=== PATIENT | male | born 1975 | race Caucasian/White ===

== ENCOUNTER 2023-04-14 22:46 | Inpatient (IN) | payer OTHER ==
[~2023-04-14] VITALS: Ht 180.3 cm; Wt 102.0 kg
[2023-04-14] MEDS ORDERED: SODIUM CHLORIDE 0.9% 1,000 ML IV ONE (23:30)
[2023-04-14] MEDS ORDERED: LORazepam 2 MG/ML VIAL IVP ONE (23:30)
[2023-04-14 23:35] LABS: BASOPHILS % (AUTO) 0.9 % (0.0-2.0); EOSINOPHILS % (AUTO) 3.6 % (1.0-6.0); HEMATOCRIT 33.6 % (41-53); HEMOGLOBIN 10.9 g/dL (13.5-17.5); LYMPHOCYTES # (AUTO) 0.5 K/uL (1.0-4.8); LYMPHOCYTES % (AUTO) 20.3 % (22.0-44.0); MEAN CORPUSCULAR HEMOGLOBIN 25.9 pg (26.0-34.0); MEAN CORPUSCULAR HGB CONC 32.4 G/dL (31.0-37.0); MEAN CORPUSCULAR VOLUME 80 fL (80-100); MONOCYTES # (AUTO) 0.3 K/uL (0.1-1.0); MONOCYTES % (AUTO) 12.8 % (2.0-9.0); NEUTROPHILS # (AUTO) 1.6 K/uL (1.8-7.7); NEUTROPHILS % (AUTO) 62.4 % (40.0-70.0); RED BLOOD CELL COUNT(AUTO) 4.21 MIL/uL (4.50-5.90); RED CELL DISTRIBUTION WIDTH 18.8 % (11.5-14.5)
[2023-04-14 23:45] LABS: ANION GAP 10 mmol/L (8-16); CALCIUM, TOTAL 8.5 mg/dL (8.8-10.5); CARBON DIOXIDE 26 mmol/L (22-29); CHLORIDE 107 mmol/L (98-107); CREATININE 0.63 mg/dL (0.60-1.30); GLOMERULAR FILTR. RATE CALC > 60 mL/min (>60); GLUCOSE,RANDOM 102 mg/dL (70-110); POTASSIUM 3.6 mmol/L (3.5-5.1); SODIUM SERUM 143 mmol/L (136-145)
[2023-04-14 23:49] LABS: INR 1.5 (0.9-1.1)
[2023-04-14 23:59] LABS: PLATELET COUNT (AUTO) 73 K/uL (150-450)
[2023-04-15 00:03] LABS: B-TYPE NATRIURETIC PEPTIDE 52 pg/mL (0-100)
[2023-04-15 00:11] LABS: ALANINE AMINOTRANSFERASE 29 U/L (12-78); ALBUMIN 3.1 g/dL (3.4-5.0); ALKALINE PHOSPHATASE 75 U/L (46-116); ASPARTATE AMINOTRANSFERASE 61 U/L (15-37); BILIRUBIN,TOTAL 2.1 mg/dL (0.1-1.0); CREATINE KINASE, TOTAL ONLY 81 U/L (39-308); TOTAL PROTEIN, SERUM 7.7 g/dL (6.4-8.2)
[2023-04-15 02:59] LABS: APPEARANCE,URINE CLEAR (CLEAR); BILIRUBIN,URINE NEGATIVE (NEGATIVE); GLUCOSE, URINE (UA) NEGATIVE (NEGATIVE); KETONES,URINE NEGATIVE (NEGATIVE); LEUKOCYTE ESTERASE ,URINE NEGATIVE (NEGATIVE); NITRATE,URINE NEGATIVE (NEGATIVE); OCCULT BLOOD,URINE NEGATIVE (NEGATIVE); PROTEIN,URINE 30-70 mg/dL (NEGATIVE); SPECIFIC GRAVITIY, URINE 1.024 (1.003-1.030)
[2023-04-15 03:12] VITALS: BP 129/74
[2023-04-15 08:10] VITALS: BP 112/68
[2023-04-15] MEDS ORDERED: LORazepam 2 MG/ML VIAL IVP PRN (11:00)
[2023-04-15] MEDS ORDERED: ACETAMINOPHEN 325 MG TABLET PO PRN (11:15)
[2023-04-15] MEDS ORDERED: MAGNESIUM HYDROXIDE SUSPENSION 30 ML UDCUP PO PRN (11:15)
[2023-04-15] MEDS ORDERED: ZOLPIDEM TARTRATE 5 MG TABLET PO PRN (11:15)
[2023-04-15] MEDS ORDERED: BISACODYL 10 MG RECTAL RECTAL SUPPOSITORY PR PRN (11:15)
[2023-04-15] MEDS ORDERED: ONDANSETRON HCL 4 MG/2 ML VIAL IVP PRN (11:15)
[2023-04-15] MEDS: 1: MAGNESIUM SULFATE 2 GM, MVI, ADULT NO.1 WITH VIT K 10 ML, THIAMINE 100 MG, FOLIC ACID IV SCH ×5 (12:41)
[2023-04-15] MEDS: HEPARIN SODIUM,PORCINE 5,000 UNITS/ML VIAL SQ SCH (15:23)
[2023-04-15 15:36] VITALS: BP 102/57
[2023-04-15 15:57] LABS: AMPHET/METH SCREEN,URINE NEGATIVE (NEGATIVE); BARBITURATE SCREEN, URINE NEGATIVE (NEGATIVE); BENZODIAZEPINES SCREEN,URINE NEGATIVE (NEGATIVE); CANNABINOID SCREEN,URINE NEGATIVE (NEGATIVE); COCAINE SCREEN,URINE NEGATIVE (NEGATIVE); METHADONE SCREEN, URINE NEGATIVE (NEGATIVE); OPIATE SCREEN,URINE NEGATIVE (NEGATIVE); PHENCYCLIDINE SCREEN,URINE NEGATIVE (NEGATIVE)
[2023-04-15 19:59] VITALS: BP 98/54
[2023-04-15] MEDS: DOCUSATE SODIUM 100 MG CAPSULE PO SCH (20:07)
[2023-04-16] MEDS: HEPARIN SODIUM,PORCINE 5,000 UNITS/ML VIAL SQ SCH ×3 (00:08→15:57)
[2023-04-16] MEDS: 1: MAGNESIUM SULFATE 2 GM, MVI, ADULT NO.1 WITH VIT K 10 ML, THIAMINE 100 MG, FOLIC ACID IV SCH ×10 (01:00→13:44)
[2023-04-16 05:03] VITALS: BP 119/65
[2023-04-16 08:02] VITALS: BP 113/61
[2023-04-16] MEDS: DOCUSATE SODIUM 100 MG CAPSULE PO SCH ×2 (09:03→20:23)
[2023-04-16] MEDS: PANTOPRAZOLE SODIUM 40 MG DR TABLET PO SCH (09:03)
[2023-04-16 20:02] VITALS: BP 108/59
[2023-04-17] MEDS: HEPARIN SODIUM,PORCINE 5,000 UNITS/ML VIAL SQ SCH ×2 (01:17→08:27)
[2023-04-17] MEDS ORDERED: SODIUM CHLORIDE 0.9% 1,000 ML ONE (03:12)
[2023-04-17 04:07] VITALS: BP 106/58
[2023-04-17 07:46] VITALS: BP 112/67
[2023-04-17] MEDS: DOCUSATE SODIUM 100 MG CAPSULE PO SCH (08:27)
[2023-04-17] MEDS: PANTOPRAZOLE SODIUM 40 MG DR TABLET PO SCH (08:28)
[2023-04-17 15:37] VITALS: BP 112/67
== END 2023-04-17 16:00 | DRG 897 ==
LOC: EMS 22:48 → 6S 04-15 03:01
PROVIDERS: ADMIT Internal Medicine; ATTEND Internal Medicine
DX: F10.939 Alcohol use, unspecified with withdrawal, unspecified (principal); D61.818 Other pancytopenia; Y90.0 Blood alcohol level of less than 20 mg/100 ml
CPT/HCPCS: 71045; 80053; 80307; 81003; 82550; 83880; 84484; 85025; 85610; 85730; 93005; 99285; G0480; J1644; J2060; J3411; J3475; J3490; J7030; 36415-L1; 36415-TC